=== PATIENT | female | born 1970 | race Caucasian/White ===

== ENCOUNTER 2019-12-24 16:45 | Emergency (ER) | payer SELFPAY ==
[~2019-12-24] VITALS: Ht 157.5 cm; Wt 95.8 kg
[~2019-12-24 16:45] MED LIST: ALBU2.5V5 NEB; ALBU2.5V8 IH; MONT10TA80 PO; PRED1TAB PO
[2019-12-24] MEDS ORDERED: IPRATRPIUM/ALBUTEROL 0.5/2.5MG 3 ML NEBU. NEB ONE (18:15)
--- NOTE | 2019-12-24 18:16 | PHYS DOC ---
Past History Past Medical History: No Pertinent History Past Surgical History: No Surgical History Alcohol Use: None Adult General Chief Complaint Chief Complaint: COUGH HPI HPI Patient is a warty 9-year-old female who presents with complaint of cough, wheezing and mild shortness of breath for the last few days. Patient has long history of asthma and states that when weather changes a lot, she tends to have more problems with her asthma. She states that she went in to see her doctor today because she had actively dropped her inhaler into the toilet and when her doctor listened to her lungs, she was told she needed to come in for chest x- ray. Patient denies any fever. She denies any chest pain. She also denies any recent travel or exposure to any known patients with COVID.[] Review of Systems Review of Systems Constitutional: Denies fever or chills [] Respiratory: Positive cough, wheezing and mild shortness of breath [] Cardiovascular: No additional information not addressed in HPI [] Integument: Denies rash or skin lesions [] Neurologic: Denies headache, focal weakness or sensory changes [] Allergies Allergies Allergies Coded Allergies Type Severity Reaction Last Updated Verified No Known Drug Allergies 08/06/15 No Physical Exam Physical Exam Constitutional: Well developed, well nourished, no acute distress, non-toxic appearance. [] Cardiovascular:Heart rate regular rhythm, no murmur [] Lungs & Thorax: Inspiratory and expiratory wheezes are noted bilaterally to auscultation [] Skin: Warm, dry, no erythema, no rash. [] Extremities: No tenderness, no cyanosis, no clubbing, ROM intact, no edema. [] Current Patient Data Vital Signs Vital Signs Date Time Temp Pulse Resp B/P (MAP) Pulse Ox O2 Delivery O2 Flow Rate FiO2 12/24/19 17:30 98.0 111 20 182/117 (138) 97 Room Air EKG EKG [] Radiology/Procedures Radiology/Procedures [] Course & Med Decision Making Course & Med Decision Making Pertinent Labs and Imaging studies reviewed. (See chart for details) [] Dragon Disclaimer Dragon Disclaimer This electronic medical record was generated, in whole or in part, using a voice recognition dictation system. Departure Departure: Impression: Primary Impression: Asthma exacerbation Disposition: HOME, SELF-CARE Condition: STABLE Referrals: KASIA CARTAGENA (PCP) Patient Instructions: Asthma, Adult Scripts Albuterol Sulfate (PROAIR HFA INHALER) 8.5 Gm Hfa.aer.ad 2 PUFF IH PRN Q4-6HRS PRN for wheezing, #1 INHALER 0 Refills Prov: CORINNE REYES Jr. DO 12/24/19 Methylprednisolone (MEDROL) 4 Mg Tab.ds.pk 1 PKG PO UD for inflammation, #1 PKG Prov: CORINNE REYES Jr. DO 12/24/19 Problem Qualifiers Primary Impression: Asthma exacerbation Asthma severity: unspecified severity Asthma persistence: unspecified Qualified Codes: J45.901 - Unspecified asthma with (acute) exacerbation CORINNE REYES Jr. DO Dec 24, 2019 18:16
[2019-12-24] MEDS ORDERED: cloNIDine HCL 0.1 MG TABLET PO ONE (18:30)
[2019-12-24] MEDS ORDERED: METH4TAB2 PO (19:22)
[2019-12-24] MEDS ORDERED: ALBU2.5V8 IH (19:22)
[2019-12-24 19:30] VITALS: BP 178/98
--- NOTE | 2019-12-24 19:48 | RAD ---
Exam: Chest 2 views INDICATION: Cough, wheezing, shortness of breath TECHNIQUE: Frontal and lateral views the chest Comparisons: 08/06/2015 FINDINGS: The cardiomediastinal silhouette and pulmonary vessels are within normal limits. The lung and pleural spaces are clear. IMPRESSION: No acute cardiopulmonary process. Electronically signed by: Cheli Peterson MD (12/24/2019 7:45 PM) [id number]
== END 2019-12-24 19:36 | disposition home or self-care (01) ==
LOC: ER 16:45
DX: J45.901 Unspecified asthma with (acute) exacerbation (principal)
CPT/HCPCS: 71046; 94640; 99283-25